=== PATIENT | female | born 1940 | race Caucasian/White ===

== ENCOUNTER → 2016-05-14 | Outpatient (CLI) | payer OTHER, BC ==
[~2016-05-14] MED LIST: ALLOPURINOL 10100 M1 PO; ALLOPURINOL 30300 M2 PO; APAP650 PO; ASPIR 8181 MG PO; ASPIRIN325 PO; BUPROPION HCL200 MG PO; CARDIZEM CD180 MG PO; COLACE100 MG PO; COQ-10100 MG PO; CRESTOR10 MG PO; CYMBALTA60 MG PO; FLAX OIL1000 MG PO; GLUCOTROL5 MG PO; KLOR-CON 1010 MEQ PO; LAMICTAL100 MG PO; LEVOTHYROXINE0.05 MG PO; LOSARTAN POTAS100 MG PO; MACROBID 100 M100 M1 PO; MIRALAX17 GM PO; OFEV150 MG PO; OMEGA-31000 M1 PO; ONDANSETRON HCL4 M2 PO; ONDANSETRON ODT8 MG PO; PREDNISONE 20 M20 MG PO; PRILOSEC 10MG C10 M1 PO; VITAMIN D2000 UNI1 PO
== END ==
LOC: HYPER 07:05
DX: S81.802A Unspecified open wound, left lower leg, initial encounter (principal); J44.9 Chronic obstructive pulmonary disease, unspecified; E78.5 Hyperlipidemia, unspecified; I12.9 Hypertensive chronic kidney disease with stage 1 through stage 4 chronic kidney disease, or unspecified chronic kidney disease; N18.2 Chronic kidney disease, stage 2 (mild); F32.9 Major depressive disorder, single episode, unspecified; Z85.828 Personal history of other malignant neoplasm of skin; Z87.01 Personal history of pneumonia (recurrent); Z87.891 Personal history of nicotine dependence; Z90.5 Acquired absence of kidney; X58.XXXA Exposure to other specified factors, initial encounter; Y93.89 Activity, other specified; Y92.89 Other specified places as the place of occurrence of the external cause; Y99.8 Other external cause status

== ENCOUNTER → 2016-05-21 | Outpatient (CLI) | payer OTHER, BC | LOC: HYPER 06:59 | DX: S81.802D Unspecified open wound, left lower leg, subsequent encounter (principal); J44.9 Chronic obstructive pulmonary disease, unspecified; F32.9 Major depressive disorder, single episode, unspecified; E78.5 Hyperlipidemia, unspecified; I10 Essential (primary) hypertension; Z87.891 Personal history of nicotine dependence; X58.XXXD Exposure to other specified factors, subsequent encounter ==

== ENCOUNTER → 2016-05-28 | Outpatient (CLI) | payer OTHER, BC | LOC: HYPER 07:04 | DX: S81.802D Unspecified open wound, left lower leg, subsequent encounter (principal); J44.9 Chronic obstructive pulmonary disease, unspecified; Z86.008 Personal history of in-situ neoplasm of other site; F32.9 Major depressive disorder, single episode, unspecified; E78.5 Hyperlipidemia, unspecified; I10 Essential (primary) hypertension; Z87.891 Personal history of nicotine dependence; X58.XXXD Exposure to other specified factors, subsequent encounter ==

== ENCOUNTER → 2016-06-11 | Outpatient (CLI) | payer OTHER, BC | LOC: HYPER 07:12 | DX: S81.812D Laceration without foreign body, left lower leg, subsequent encounter (principal); S61.501A Unspecified open wound of right wrist, initial encounter; S81.002A Unspecified open wound, left knee, initial encounter; E78.5 Hyperlipidemia, unspecified; I10 Essential (primary) hypertension; Z85.828 Personal history of other malignant neoplasm of skin; F32.9 Major depressive disorder, single episode, unspecified; X58.XXXD Exposure to other specified factors, subsequent encounter; Y92.89 Other specified places as the place of occurrence of the external cause; Y99.8 Other external cause status; X58.XXXA Exposure to other specified factors, initial encounter; Y93.9 Activity, unspecified; Y92.9 Unspecified place or not applicable; Y99.9 Unspecified external cause status; Z87.891 Personal history of nicotine dependence ==

== ENCOUNTER 2016-07-03 21:18 | Emergency (ER) | payer OTHER, BC ==
[~2016-07-03] VITALS: Ht 157.5 cm; Wt 97.5 kg
[2016-07-03] MEDS ORDERED: ASPIR 8181 MG (21:55)
[2016-07-03] MEDS ORDERED: RITUXAN100 MG/10 (21:56)
[2016-07-03 22:02] LABS: HEMATOCRIT 27.5 % (37.0-47.0); HEMOGLOBIN 8.9 gm/dL (12.0-15.0); MANUAL DIFF YES; MCH 27.3 pg (26.0-34.0); MCHC 32.2 g/dL (28.0-37.0); PLATELET COUNT 352 thou/uL (150-400); RBC 3.24 mil/uL (4.20-5.00); RDW 16.6 % (10.5-14.5); WBC 20.2 thou/uL (4.0-11.0)
[2016-07-03 22:09] LABS: CREATININE 1.8 mg/dL (0.6-1.0); POTASSIUM 4.4 mmol/L (3.5-5.1)
[2016-07-03 22:23] LABS: ABSOLUTE NEUTROPHILS 17.8 thou/uL (1.4-8.2); ATYPICAL LYMPHS 2 %; TOTAL CELL COUNT 100
[2016-07-03 22:24] LABS: ANISOCYTOSIS 2+; MICROCYTES 1+
[2016-07-03 22:25] LABS: SCHISTOCYTES FEW
[2016-07-03 22:26] LABS: POLYCHROMASIA OCCASIONAL
[2016-07-03] MEDS ORDERED: PREDNISONE 20 M20 MG PO (23:25)
== END 2016-07-03 23:54 | disposition home or self-care (01) ==
LOC: ER 21:18
PROVIDERS: Physician Assistant
DX: D72.829 Elevated white blood cell count, unspecified (principal); R51 Headache; M32.9 Systemic lupus erythematosus, unspecified; I10 Essential (primary) hypertension; E78.5 Hyperlipidemia, unspecified; F32.9 Major depressive disorder, single episode, unspecified; Z90.5 Acquired absence of kidney; Z88.1 Allergy status to other antibiotic agents; Z88.2 Allergy status to sulfonamides; Z87.891 Personal history of nicotine dependence

== ENCOUNTER 2016-08-09 15:38 | Inpatient (IN) | payer OTHER, BC ==
[~2016-08-09] VITALS: Ht 160 cm; Wt 90.7 kg
--- NOTE | ~2016-08-09 | HC ---
[facility] [place] [address] CONSULTATION Name: SIDDHARTH SAPP Room #: 302-P [facility] IN M.R.#: [id number] Admission: 08/09/16 Attend Phys: Bryce Persaud MD Discharge: 08/13/16 Date of : 42 Report #: [id number] THIS REPORT FOR: //name// CC: Bryce Álvarez HISTORY OF PRESENT ILLNESS: This is a 76-year-old white female with a history of systemic lupus erythematosus, pulmonary fibrosis, chronically on nasal prong O2, was admitted with lightheadedness and weakness. She was diagnosed with a B12 deficiency. 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 Neurology is involved. She has generalized weakness and debilitation. There is a question as to whether the dizziness could be a side effect from a medication, which she is off now. She does have lower extremity edema, although Internal Medicine does not feel she looks like she is in congestive heart failure. She does have some protein calorie malnutrition as well. We are seeing her in rehabilitation medicine consultation. PAST MEDICAL HISTORY: Includes the pulmonary fibrosis, lupus, hypertension, left nephrectomy in 1984, back surgery in 2013, hyperlipidemia, depression. PAST SURGICAL HISTORY: As noted above. MEDICATIONS: Please see the full medication listing. ALLERGIES: KEFLEX and SULFA. HABITS: Former tobacco user, quit greater than a year ago. No history of alcohol abuse. SOCIAL HISTORY: Lives in an apartment with her . Did not utilize any gait aids. There are 20 steps in. They are both retired. REVIEW OF SYSTEMS: Did not offer any current complaints of chest pain, shortness of breath or abdominal discomfort. She complains of overall generalized weakness. She complains of dizziness with attempting to get up. She has lower extremity edema, which appears premorbid. She notes multiple skin bruises and some skin breaks. Did not offer any complaints of headaches or bowel or bladder changes. PHYSICAL EXAMINATION: A 76-year-old white female, overweight, in no obvious distress. Last recorded temperature is 97.1, pulse 85, respirations 20, blood pressure 188/75. The patient is alert. HEENT appeared to be benign. Cranial nerves are grossly intact. Facies are symmetric. Functional range of motion of both upper extremities. She does have strength probably a grade 4- to 3+/5. She has multiple upper extremity ecchymoses, edema of her distal upper extremities is probably a grade 1+. She is on nasal prong O2. In the lower extremities, she has 1+ edema to 2+ edema. She does have some dressings over [address] [address] CONSULTATION Name: SIDDHARTH SAPP Room #: [facility] IN ..#: [id number] Admission: 08/09/16 Attend Phys: Bryce Persaud MD Discharge: 08/13/16 Date of : 42 Report #: [id number] her lower extremities with some open areas/excoriation. She appears to have some venous stasis changes. She has overall thin skin. Her strength is probably a grade 3+ to 4-. Complains of being dizzy with attempting to get up and sitting on the edge of the bed. ASSESSMENT: A 76-year-old white female with the following problem list: 1. Pulmonary rehabilitation. 2. Pulmonary fibrosis. 3. Dizziness with attempting to get up. 4. Chronic right occipital infarct. 5. B12 deficiency. 6. Systemic lupus erythematosus. 7. Atrial fibrillation. 8. Premorbid O2 nasal prong. PLAN: Therapy evaluations are underway. Note that Neurology is following. We will be glad to follow along with you regarding her rehab therapy needs. <ELECTRONICALLY SIGNED> By: Yohan Travis MD 08/13/16 1826 [id number] [id number] Yohan Travis MD /nt
--- NOTE | ~2016-08-09 | 2DMMODE ---
[facility] [address] [place] [address] 2 D/M-MODE ECHOCARDIOGRAM Name: SIDDHARTH SAPP Room #: 302-P ADM IN M.R.#: [id number] Admission: 08/09/16 Attend Phys: Dionna Hernandez Discharge: Date of : 42 Date of Service: 08/10/16 1258 Report #: [id number] THIS REPORT FOR: //name// APPROVED REPORT Study performed: 08/10/2016 09:39:00 EXAM: Comprehensive 2D, Doppler, and color-flow Echocardiogram Patient Location: Bedside Room #: 302 Status: on-call Other Information Study Quality: Adequate Indications Congestive Heart Failure Pulmonary Hypertension Hypertension/HDD 2D Dimensions LVEF(%): 46.37 (>50%) IVSd: 13.26 (7-11mm) LVOT Diam: 19.00 (18-24mm) LVDd: 49.11 mm PWd: 13.11 (7-11mm) Ascending Ao: 25.83 (22-36mm) LVDs: 37.71 (25-40mm) Aortic Root: 31.01 mm Wick's LVEF: 46.37 % Volumes Left Atrial Volume (Systole) Single Plane 4CH: 69.33 mL Single Plane 2CH: 55.29 mL LA ESV Index: 37.00 mL/m2 Aortic Valve AoV Peak Alfredo.: 1.57 m/s AO Peak Gr.: 10.82 mmHg LVOT Max P.28 mmHg LVOT Max V: 1.03 m/s KEYONNA Vmax: 1.88 cm2 Mitral Valve E/A Ratio: 0.6 MV Decel. Time: 199.65 ms MV E Max Alfredo.: 1.07 m/s MV A Alfredo.: 1.68 m/s [facility] [place] [address] 2 D/M-MODE ECHOCARDIOGRAM Name: SIDDHARTH SAPP KATIE Room #: 302-P [facility] IN M.R.#: [id number] Admission: 08/09/16 Attend Phys: Dionna Hernandez Discharge: Date of : 42 Date of Service: 08/10/16 1258 Report #: [id number] PHT: 57.90 ms IVRT: 64.59 ms Pulmonary Valve PV Peak Alfredo.: 1.07 m/s PV Peak Gr.: 4.65 mmHg Pulmonary Vein P Vein S: 0.47 m/s P Vein A: 0.25 m/s P Vein D: 0.67 m/s P Vein A Dur.: 120.0 msec P Vein S/D Ratio: 0.70 Tricuspid Valve RAP Estimate: 5.00 mmHg Left Ventricle The left ventricle is normal size. There is normal LV segmental wall motion. Mild concentric left ventricular hypertrophy. Left ventricular systolic function is normal. The left ventricular ejection fraction is within the normal range. Transmitral Doppler flow pattern suggests impaired LV relaxation. Right Ventricle The right ventricle is normal size. The right ventricular systolic function is normal. Atria Left atrium is mildly dilated. The right atrium size is normal. Aortic Valve The aortic valve is normal in structure. No aortic regurgitation is present. There is no aortic valvular stenosis. Mitral Valve Mild mitral annular calcification. Mild mitral regurgitation. No evidence of mitral valve stenosis. Tricuspid Valve The tricuspid valve is normal in structure. Trace tricuspid regurgitation. Pulmonic Valve The pulmonary valve is normal in structure. Trace pulmonic regurgitation. Great Vessels [facility] [address] [place] [address] 2 D/M-MODE ECHOCARDIOGRAM Name: SIDDHARTH SAPP Room #: 302-P ADM IN M.R.#: [id number] Admission: 08/09/16 Attend Phys: Dionna Hernandez Discharge: Date of : 42 Date of Service: 08/10/16 1258 Report #: [id number] The aortic root is normal in size. IVC is normal in size and collapses with >50% inspiration Pericardium There is no pericardial effusion. <Conclusion> The left ventricle is normal size. Mild concentric left ventricular hypertrophy. Left ventricular systolic function is normal. The left ventricular ejection fraction is within the normal range. Left atrium is mildly dilated. The tricuspid valve is normal in structure. Trace tricuspid regurgitation. The pulmonary valve is normal in structure. Trace pulmonic regurgitation. <ELECTRONICALLY SIGNED> By: Jeff Stewart MD 08/10/16 1258 1258 1258 Jeff Stewart MD /INF
--- NOTE | ~2016-08-09 | EKG ---
[address] [address] ELECTROCARDIOGRAM REPORT Name: VANESSAFAUSTO BURCHRA KATIE Room #: 302-P ADM IN M.R.#: [id number] Admission: 08/09/16 Attend Phys: Bryce Persaud MD Discharge: Date of : 42 Report #: [id number] THIS REPORT FOR: //name// [facility] ED Test Date: 2016-08-09 Test Time: 16:32:19 Pat Name: SIDDHARTH SAPP Department: Room: [facility] Gender: F Greens Picker: IVONNE : 1940 Requested By: Tres Coates Order Number: [id number] MD: Loyd Moran Measurements Intervals [place] Rate: 82 P: 59 MD: 174 QRS: -12 QRSD: 95 T: 35 QT: 366 QTc: 428 Interpretive Statements Sinus rhythm Atrial premature complexes Probable left ventricular hypertrophy Inferior infarct, old Baseline wander in lead(s) V2 Compared to ECG 03/19/2016 12:57:17 Atrial premature complex(es) now present Myocardial infarct finding still present Electronically Signed On 08-10-2016 16:14:04 CDT by Loyd Moran [email or web address] <ELECTRONICALLY SIGNED> By: Loyd Moran MD 08/10/16 1614 [id number] Loyd Moran MD /EPI
[~2016-08-09 15:38] MED LIST changes: +ASPIR 8181 MG; +RITUXAN100 MG/10
[2016-08-09 15:40] VITALS: BP 162/74
[2016-08-09 16:32] LABS: HEMATOCRIT 29.8 % (37.0-47.0); HEMOGLOBIN 9.6 gm/dL (12.0-15.0); MCHC 32.4 g/dL (28.0-37.0); MCV 83.4 fL (80.0-100.0); PLATELET COUNT 294 thou/uL (150-400); RBC 3.57 mil/uL (4.20-5.00); RDW 18.6 % (10.5-14.5); WBC 14.5 thou/uL (4.0-11.0)
[2016-08-09 16:39] LABS: MANUAL DIFF YES
[2016-08-09 16:43] LABS: CALCIUM 8.7 mg/dL (8.5-10.1); CREATININE 2.2 mg/dL (0.6-1.0); POTASSIUM 4.4 mmol/L (3.5-5.1)
[2016-08-09 16:54] LABS: ALBUMIN 2.8 g/dL (3.4-5.0); MAGNESIUM 1.5 mg/dL (1.8-2.4); TOTAL BILIRUBIN 0.4 mg/dL (<0.1-1.0); TOTAL PROTEIN 6.2 g/dL (6.4-8.2); TROPONIN-I 0.08 ng/mL (<0.04-0.07)
[2016-08-09 17:06] LABS: ABSOLUTE NEUTROPHILS 13.2 thou/uL (1.4-8.2); ANISOCYTOSIS 1+; TOTAL CELL COUNT 100
[2016-08-09] MEDS ORDERED: VITAMIN D2000 UNIT PO (17:34)
[2016-08-09 18:41] LABS: URINE BILIRUBIN NEGATIVE (Negative); URINE BLOOD TRACE (Negative); URINE COLOR YELLOW; URINE GLUCOSE-RANDOM* NEGATIVE (Negative); URINE KETONES NEGATIVE (Negative); URINE NITRITE NEGATIVE (Negative); URINE PROTEIN (DIPSTICK) 2+ (Negative); URINE SPECIFIC GRAVITY <= 1.005 (1.003-1.035); URINE UROBILINOGEN 0.2 E.U./dl (0.2-1.0)
[2016-08-09 18:51] LABS: SQUAMOUS 4-10 Moderate /LPF (0-3); URINE RBC 0-2 Rare /HPF (0-2); URINE WBC 0-5 Rare /HPF (0-5)
[2016-08-09 18:52] LABS: BACTERIA None Seen /HPF (None Seen); CASTS None Seen /LPF (None Seen); CRYSTALS None Seen /LPF (None Seen)
[2016-08-09 19:40] VITALS: BP 158/75
[2016-08-09 23:35] VITALS: BP 146/86
[2016-08-10 03:22] LABS: HEMATOCRIT 28.9 % (37.0-47.0); HEMOGLOBIN 9.3 gm/dL (12.0-15.0); MCHC 32.2 g/dL (28.0-37.0); MCV 83.7 fL (80.0-100.0); RBC 3.46 mil/uL (4.20-5.00); RDW 18.4 % (10.5-14.5)
[2016-08-10 03:40] VITALS: BP 141/81
[2016-08-10 03:44] LABS: ALBUMIN 2.4 g/dL (3.4-5.0); CALCIUM 8.2 mg/dL (8.5-10.1); POTASSIUM 3.6 mmol/L (3.5-5.1); TOTAL BILIRUBIN 0.3 mg/dL (<0.1-1.0); TOTAL PROTEIN 5.7 g/dL (6.4-8.2)
[2016-08-10 03:45] VITALS: BP 141/81
[2016-08-10 07:48] VITALS: BP 152/94
[2016-08-10 16:10] VITALS: BP 149/78
[2016-08-10 19:40] VITALS: BP 145/74
[2016-08-11 03:30] VITALS: BP 139/70
[2016-08-11 08:00] VITALS: BP 161/79
[2016-08-11 16:00] VITALS: BP 193/82
[2016-08-11 20:00] VITALS: BP 180/99
[2016-08-12 04:00] VITALS: BP 164/76
[2016-08-12 08:28] VITALS: BP 188/75
[2016-08-12 17:40] VITALS: BP 155/54
[2016-08-12 19:28] VITALS: BP 164/59
[2016-08-13 04:04] VITALS: BP 180/79
[2016-08-13 07:27] VITALS: BP 182/71
[2016-08-13] MEDS ORDERED: B12INJ IM (14:11)
[2016-08-14 22:10] LABS: ALPHA TOCOPHEROL 16.5 mg/L (6.5-21.5)
== END 2016-08-13 16:13 | DRG 683 ==
LOC: ER 15:38 → EROBS 17:53 → 3N 17:53
PROVIDERS: Emergency Medicine; Family Medicine; Psychiatry & Neurology Neurology
DX: N17.9 Acute kidney failure, unspecified (principal); E44.0 Moderate protein-calorie malnutrition; J90 Pleural effusion, not elsewhere classified; J96.11 Chronic respiratory failure with hypoxia; G72.0 Drug-induced myopathy; G72.2 Myopathy due to other toxic agents; L97.919 Non-pressure chronic ulcer of unspecified part of right lower leg with unspecified severity; M32.9 Systemic lupus erythematosus, unspecified; E78.5 Hyperlipidemia, unspecified; F32.9 Major depressive disorder, single episode, unspecified; D53.9 Nutritional anemia, unspecified; E83.42 Hypomagnesemia; D72.829 Elevated white blood cell count, unspecified; I12.9 Hypertensive chronic kidney disease with stage 1 through stage 4 chronic kidney disease, or unspecified chronic kidney disease; N18.9 Chronic kidney disease, unspecified; I27.2 Other secondary pulmonary hypertension; J84.10 Pulmonary fibrosis, unspecified; E53.8 Deficiency of other specified B group vitamins; I48.91 Unspecified atrial fibrillation; T14.8 Other injury of unspecified body region; T38.0X5A Adverse effect of glucocorticoids and synthetic analogues, initial encounter; Z88.2 Allergy status to sulfonamides; Z88.1 Allergy status to other antibiotic agents; Y92.89 Other specified places as the place of occurrence of the external cause; Z87.891 Personal history of nicotine dependence; Z90.5 Acquired absence of kidney; Z68.35 Body mass index [BMI] 35.0-35.9, adult; Z79.52 Long term (current) use of systemic steroids; Z86.73 Personal history of transient ischemic attack (TIA), and cerebral infarction without residual deficits
CPT/HCPCS: 10096

== ENCOUNTER → 2017-02-13 | Outpatient (CLI) | payer OTHER, BC ==
[~2017-02-13] MED LIST changes: +B12INJ IM; +COLACE 100 MG100 MG PO; +LIDOCAINE1 EACH TRANSDERM; +SENNA PO; +VITAMIN D2000 UNIT PO
== END ==
LOC: RAD 10:28
DX: R09.89 Other specified symptoms and signs involving the circulatory and respiratory systems (principal); R91.8 Other nonspecific abnormal finding of lung field; I51.7 Cardiomegaly; M47.894 Other spondylosis, thoracic region; I27.20 Pulmonary hypertension, unspecified; I50.9 Heart failure, unspecified

== ENCOUNTER 2017-04-24 11:54 | Emergency (ER) | payer OTHER, BC ==
[~2017-04-24] VITALS: Ht 162.6 cm; Wt 87.1 kg
[~2017-04-24 11:54] MED LIST changes: -LIDOCAINE1 EACH TRANSDERM
[2017-04-24] MEDS ORDERED: LIDOCAINE1 EACH TRANSDERM (15:17)
[2017-04-24 16:32] VITALS: BP 115/49
== END 2017-04-24 16:20 | disposition home or self-care (01) ==
LOC: ER 11:54
DX: S22.32XA Fracture of one rib, left side, initial encounter for closed fracture (principal); S00.83XA Contusion of other part of head, initial encounter; S66.912A Strain of unspecified muscle, fascia and tendon at wrist and hand level, left hand, initial encounter; I10 Essential (primary) hypertension; E78.5 Hyperlipidemia, unspecified; I48.91 Unspecified atrial fibrillation; M32.9 Systemic lupus erythematosus, unspecified; Z88.1 Allergy status to other antibiotic agents; Z88.2 Allergy status to sulfonamides; Z87.891 Personal history of nicotine dependence; W06.XXXA Fall from bed, initial encounter; Y93.89 Activity, other specified; Y92.89 Other specified places as the place of occurrence of the external cause; Y99.8 Other external cause status

== ENCOUNTER → 2017-05-22 | Outpatient (CLI) | payer OTHER, BC ==
[~2017-05-22] MED LIST changes: +LIDOCAINE1 EACH TRANSDERM
== END ==
LOC: CAT 06:36
DX: J92.9 Pleural plaque without asbestos (principal); I70.8 Atherosclerosis of other arteries; T84.018A Broken internal joint prosthesis, other site, initial encounter

== ENCOUNTER → 2017-12-01 | Outpatient (CLI) | payer OTHER, BC | LOC: CAT 10:25 | DX: J47.9 Bronchiectasis, uncomplicated (principal); J84.10 Pulmonary fibrosis, unspecified; M25.78 Osteophyte, vertebrae ==

== ENCOUNTER 2018-02-12 14:02 | Emergency (ER) | payer OTHER, BC ==
[~2018-02-12] VITALS: Ht 160 cm; Wt 75.3 kg
[2018-02-12 15:01] LABS: HEMATOCRIT 30.5 % (37.0-47.0); HEMOGLOBIN 9.8 gm/dL (12.0-15.0); MCHC 32.1 g/dL (28.0-37.0); MCV 84.1 fL (80.0-100.0); RBC 3.63 mil/uL (4.20-5.00); RDW 17.1 % (10.5-14.5); WBC 11.5 thou/uL (4.0-11.0)
[2018-02-12 15:10] LABS: CALCIUM 8.6 mg/dL (8.5-10.1); CREATININE 1.7 mg/dL (0.6-1.0); POTASSIUM 4.2 mmol/L (3.5-5.1)
[2018-02-12 15:14] LABS: ALBUMIN 2.5 g/dL (3.4-5.0); TOTAL BILIRUBIN 0.4 mg/dL (<0.1-1.0); TOTAL PROTEIN 6.3 g/dL (6.4-8.2)
[2018-02-12] MEDS ORDERED: CLARITHROMYCIN500 MG PO (15:53)
[2018-02-12] MEDS ORDERED: PREDNISONE 20 M20 MG PO (15:53)
[2018-02-12] MEDS ORDERED: VENTOLIN HFA 1818 GM INH (15:53)
[2018-02-12 15:57] VITALS: BP 123/70
== END 2018-02-12 16:08 | disposition home or self-care (01) ==
LOC: ER 14:02
PROVIDERS: Emergency Medicine
DX: J20.9 Acute bronchitis, unspecified (principal); I10 Essential (primary) hypertension; M32.9 Systemic lupus erythematosus, unspecified; E78.5 Hyperlipidemia, unspecified; F32.9 Major depressive disorder, single episode, unspecified; I48.91 Unspecified atrial fibrillation; Z87.891 Personal history of nicotine dependence; Z88.1 Allergy status to other antibiotic agents; Z88.2 Allergy status to sulfonamides

== ENCOUNTER → 2018-12-08 | Outpatient (CLI) | payer OTHER, BC ==
[~2018-12-08] MED LIST changes: +CLARITHROMYCIN500 MG PO; +VENTOLIN HFA 1818 GM INH
== END ==
LOC: CAT 10:32
DX: J84.112 Idiopathic pulmonary fibrosis (principal); R91.8 Other nonspecific abnormal finding of lung field; I70.0 Atherosclerosis of aorta; I25.10 Atherosclerotic heart disease of native coronary artery without angina pectoris; J43.9 Emphysema, unspecified; M25.78 Osteophyte, vertebrae; Z88.8 Allergy status to other drugs, medicaments and biological substances; Z88.2 Allergy status to sulfonamides; Z79.84 Long term (current) use of oral hypoglycemic drugs